=== PATIENT | female | born 1980 | race Hispanic/Latino ===

== ENCOUNTER 2022-03-07 09:56 | Outpatient (CLI) | payer BC | END 2022-03-07 09:57 | disposition home or self-care (01) | LOC: CSHLAB 09:56 | PROVIDERS: ATTEND Internal Medicine Gastroenterology | DX: Z20.822 Contact with and (suspected) exposure to COVID-19 (principal) | CPT/HCPCS: 87811 ==

== ENCOUNTER 2022-03-10 06:23 | Day surgery (SDC) | payer BC ==
[2022-03-09 09:41] VITALS: BMI 27.1
[2022-03-10] MEDS ORDERED: Midazolam HCl 2 mg/2 ml Vial ONE (07:33)
[2022-03-10] MEDS ORDERED: PROPOFOL 40 ML ONE (08:26)
[2022-03-10] MEDS ORDERED: Lidocaine 1% PF 5 ML VIAL ONE (08:26)
[2022-03-10] MEDS ORDERED: Simethicone 40 MG/0.6 ML Drop 30 ML BOT PO PRN (08:41)
== END 2022-03-10 09:20 | disposition home or self-care (01) ==
LOC: CSHSDC 06:23
PROVIDERS: ATTEND Internal Medicine Gastroenterology
PROC: 0DJD8ZZ Inspection of Lower Intestinal Tract, Via Natural or Artificial Opening Endoscopic (ICD-10-PCS; principal; 2022-03-10)
DX: K57.30 Diverticulosis of large intestine without perforation or abscess without bleeding (principal); K64.9 Unspecified hemorrhoids; E78.5 Hyperlipidemia, unspecified; E03.9 Hypothyroidism, unspecified; J45.909 Unspecified asthma, uncomplicated; Q96.9 Turner's syndrome, unspecified; Z87.19 Personal history of other diseases of the digestive system; Z79.2 Long term (current) use of antibiotics; Z20.822 Contact with and (suspected) exposure to COVID-19
CPT/HCPCS: J2250; J2704